=== PATIENT | male | born 1975 | race American Indian/Alaskan Native ===

== ENCOUNTER 2017-08-10 14:04 | Emergency (ER) | payer SELFPAY ==
[2017-08-10 14:42] VITALS: BP 124/75
--- NOTE | 2017-08-10 15:58 | XRay Report ---
FINAL REPORT EXAM: XR FINGER(S) 2+V LT HISTORY: swelling s/p injury lt middle finger TECHNIQUE: AP, lateral, and oblique views of the left 3rd finger PRIORS: None. FINDINGS: There is no evidence for acute fracture or dislocation. Significant soft tissue swelling is seen along the dorsal aspect is of the 3rd proximal interphalangeal joint. There is an air bubble within the soft tissues which can be due to laceration or infection. No radiopaque foreign bodies are seen. Bony mineralization is normal and joint spaces are maintained. IMPRESSION: No acute bony abnormality noted. Significant soft tissue swelling is seen along the dorsal aspect of the 3rd proximal phalanx. There is air within the swelling consistent with either laceration or infection.
[2017-08-10] MEDS ORDERED: BOOSTRIX IM ONE (19:10)
[2017-08-10] MEDS ORDERED: MOTRIN PO ONE (19:10)
--- NOTE | 2017-08-10 19:40 | Emergency Department Report ---
ED Laceration HPI - HPI Chief Complaint: Extremity Injury, Upper Stated Complaint: LACERATION LEFT MIDDLE FINGER Time Seen by Provider: 08/10/17 19:13 Location: Upper Extremity (left 3rd digit) Severity: moderate Tetanus Status: Not up to Date Laceration Symptoms: No Foreign Body Sensation, No Numbness, No Weakness, No Pain Other History: This is a 41 y.o. A.A. male, presents with laceration to left 3rd digit. Patient reports finger got caught in a door at his friend house Friday morning around 0500. His friend girlfriend wrapped the finger with gauze and he thought it would close on its own. He was not having pain and didn' t think he need to come to the hospital. States yesterday it began to swell and mild bloddy discharge. He felt like something wasn't right. Denies pain, numbness/tingling, and odor. ED Review of Systems ROS: Stated complaint: LACERATION LEFT MIDDLE FINGER Other details as noted in HPI Constitutional: denies: chills, fever Respiratory: denies: cough, shortness of breath, wheezing Cardiovascular: denies: chest pain, palpitations Gastrointestinal: denies: abdominal pain, nausea, diarrhea Skin: other (laceration to left 3rd finger for 48 hours). denies: rash, lesions ED Past Medical Hx - Past Medical History Previous Medical History?: No - Surgical History Additional Surgical History: hernia surgery-unknown year - Social History Smoking Status: Current Every Day Smoker Substance Use Type: Alcohol - Medications Home Medications: Home Medications Medication Instructions Recorded Confirmed Last Taken Type Ibuprofen [Motrin] 800 mg PO Q8HR PRN #60 tablet 04/06/15 Unknown Rx methOCARBAMOL [Robaxin TAB] 500 mg PO BID #10 tab 04/06/15 Unknown Rx traMADol [Ultram] 50 mg PO Q6HR PRN #14 tablet 04/06/15 Unknown Rx Cephalexin [Keflex] 500 mg PO BID 7 Days #14 capsule 08/10/17 Unknown Rx Laceration Physical Exam - Exam General: Vital signs noted. No distress. Alert and acting appropriately. Wound Length (cm): 5 Laceration Location: Upper Extremity (left 3rd proximal phalanx, swelling, erythema, intact tendon) Laceration Exam: Yes Exposed Tendon, Vessel, or Nerve, Yes Normal Distal CMS, No Foreign Body, No Tendon Injury ED Course Vital Signs 08/10/17 14:37 Temperature 98 F Pulse Rate 82 Respiratory 18 Rate Blood Pressure 124/75 O2 Sat by Pulse 98 Oximetry - Laceration /Wound Repair Left Proximal Finger Wound Location: upper extremity (3rd proximal phalanx) Wound Length (cm): 5 Wound's Depth, Shape: into muscle, linear, flap Wound Explored: contaminated Irrigated w/ Saline (ccs): 20 Betadine Prep?: Yes Anesthesia: 1% Lidocaine Volume Anesthetic (ccs): 2 Wound Repaired With: sutures Suture Size/Type: 4:0, proline Number of Sutures: 6 (loose, continous) Layer Closure?: No Sterile Dressing Applied?: Yes ED Medical Decision Making - Radiology Data Radiology results: report reviewed, image reviewed Finger Xray IMPRESSION: No acute bony abnormality noted. Significant soft tissue swelling is seen along the dorsal aspect of the 3rd proximal phalanx. There is air within the swelling consistent with either laceration or infection. - Medical Decision Making This is a 41 y.o. male presents with left 3rd digit laceration x 2 days. Patient examined by me. X-ray of left hand obtained. No acute bony abnormality noted. Significant soft tissue swelling is seen along the dorsal aspect of the 3rd proximal phalanx. There is air within the swelling consistent with either laceration or infection. Patient is non-toxic appearing and stable. Physical examination is susceptible of cellulites. Consulted with Dr. Read. Advised to loosely suture, tetanus, and start antibiotic. Obtained culture, awaiting results. Given tetanus 0.5 mL IM, motrin 600 mg po once, and keflex 500 mg po once in Er. Placed 6 loose sutures, refer to suture note. Discharged home for outpatient treatment with keflex. Discussed ER care plan with patient. Patient agreed with plan. F/U with Dr. Duarte or [facility]. Suture removal in 7 days. Patient informed of risk of losing finger or function if he doesn't follow up with Ortho. Critical care attestation.: If time is entered above; I have spent that time in minutes in the direct care of this critically ill patient, excluding procedure time. ED Disposition Clinical Impression: Cellulitis of finger of left hand Laceration of finger Qualifiers: Encounter type: initial encounter Finger: middle finger Damage to nail status: without damage Foreign body presence: without foreign body Laterality: left Qualified Code(s): S61.213A - Laceration without foreign body of left middle finger without damage to nail, initial encounter Disposition: DC-01 TO HOME OR SELFCARE Is pt being admited?: No Does the pt Need Aspirin: No Condition: Stable Instructions: Suture Care (ED), Finger Laceration (ED) Additional Instructions: Return to ER or primary care provider for suture removal in 7 days. Take antibiotics as prescribed for the full course. Avoid over use of left hand and prop arm up on pillows to decrease swelling. Follow up with Orthopedic Dr. Duarte or [facility]. Return to ER if red, swollen, foul discharge, or fever. Prescriptions: Cephalexin [Keflex] 500 mg PO BID 7 Days #14 capsule Referrals: PAU DUARTE MD [Staff Physician] - 3-5 Days [facility] [Outside] - 3-5 Days [facility] [Outside] - 3-5 Days Time of Disposition: 20:46 Print Language: PANAMANIAN
[2017-08-10] MEDS ORDERED: KEFLEX ONE (20:29)
[2017-08-10] MEDS: KEFLEX PO ONE ×2 (20:30→20:49)
[2017-08-10] MEDS ORDERED: KEFLEX PO ONE (20:40)
== END 2017-08-10 21:00 | disposition home or self-care (01) ==
LOC: ED 14:04
DX: S61.213A Laceration without foreign body of left middle finger without damage to nail, initial encounter (principal); L03.012 Cellulitis of left finger; F17.200 Nicotine dependence, unspecified, uncomplicated; W23.0XXA Caught, crushed, jammed, or pinched between moving objects, initial encounter; Y93.89 Activity, other specified; Y99.8 Other external cause status; Y92.009 Unspecified place in unspecified non-institutional (private) residence as the place of occurrence of the external cause
CPT/HCPCS: 87075; 87116; 90471; 90715

== ENCOUNTER 2017-08-19 04:35 | Emergency (ER) | payer SELFPAY ==
[2017-08-19 07:39] VITALS: BP 129/93
--- NOTE | 2017-08-19 10:14 | Emergency Department Report ---
Suture/Staple Removal - [facility] Chief Complaint: Laceration/Recheck/Suture Time Seen by Provider: 08/19/17 10:10 When Sutures or [place] Placed: 5-7 Days Ago (patient appears to have a very large laceration that was repaired a week ago. It appears that the laceration had loose stitches since the tissue was somewhat destroyed. Patient denies any purulent discharge denies any swelling denies any redness.) Wound Location: right hand middle finger ED Review of Systems ROS: Stated complaint: Other details as noted in HPI Constitutional: denies: chills, fever Eyes: denies: eye pain, eye discharge, vision change ENT: denies: ear pain, throat pain Respiratory: denies: cough, shortness of breath, wheezing Cardiovascular: denies: chest pain, palpitations Endocrine: no symptoms reported Gastrointestinal: denies: abdominal pain, nausea, diarrhea Genitourinary: denies: urgency, dysuria Musculoskeletal: denies: back pain, joint swelling, arthralgia Skin: denies: rash, lesions Neurological: denies: headache, weakness, paresthesias Psychiatric: denies: anxiety, depression Hematological/Lymphatic: denies: easy bleeding, easy bruising ED Past Medical Hx - Surgical History Additional Surgical History: hernia surgery-unknown year - Social History Smoking Status: Current Every Day Smoker Substance Use Type: Alcohol - Medications Home Medications: Home Medications Medication Instructions Recorded Confirmed Last Taken Type Ibuprofen [Motrin] 800 mg PO Q8HR PRN #60 tablet 04/06/15 Unknown Rx methOCARBAMOL [Robaxin TAB] 500 mg PO BID #10 tab 04/06/15 Unknown Rx traMADol [Ultram] 50 mg PO Q6HR PRN #14 tablet 04/06/15 Unknown Rx Cephalexin [Keflex] 500 mg PO BID 7 Days #14 capsule 08/10/17 Unknown Rx Suture Removal Exam - Exam General: Vital signs noted. No distress. Alert and acting appropriately. Wound: No Pathologic Erythema, No Tenderness, No Drainage, No Pus, No Wound Dehiscence Other Systems: All other systems reviewed and are unremarkable. ED Course Vital Signs 08/19/17 07:35 Temperature 98.1 F Pulse Rate 73 Respiratory 18 Rate Blood Pressure 129/93 O2 Sat by Pulse 98 Oximetry ED Recheck MDM - Core Measures Measure Exclusions: not indicated - Differential Diagnosis Wound Recheck, Suture/Staple Removal - Medical Decision Making Sutures removed. Discussed the patient to keep the area clean and dry. Also discussed the patient that the wound was quite large and a lot of the skin was destroyed. That there may be some changes in his skin color. Discussed the patient that he may have a nice scar there. Patient is able to bend his finger with no problems or pain. Critical care attestation.: If time is entered above; I have spent that time in minutes in the direct care of this critically ill patient, excluding procedure time. ED Disposition Clinical Impression: Visit for suture removal Disposition: DC-01 TO HOME OR SELFCARE Is pt being admited?: No Does the pt Need Aspirin: No Condition: Stable Instructions: Suture Removal (ED) Additional Instructions: Please keep the ear clean and dry. He can apply Neosporin/triple antibiotic daily to the wound. Return to the emergency room the wound opens up starts to have any purulent discharge pain redness swelling. Referrals: PRIMARY CARE, [Primary Care Provider] - 3-5 Days Forms: Work/School Release Form(ED)
== END 2017-08-19 10:23 | disposition home or self-care (01) ==
LOC: ED 04:35
DX: S61.212D Laceration without foreign body of right middle finger without damage to nail, subsequent encounter (principal); W26.8XXD Contact with other sharp object(s), not elsewhere classified, subsequent encounter; F17.200 Nicotine dependence, unspecified, uncomplicated
CPT/HCPCS: 99282

== ENCOUNTER 2017-09-05 04:41 | Emergency (ER) | payer SELFPAY ==
[2017-09-05 06:33] VITALS: BP 114/75
--- NOTE | 2017-09-05 10:27 | Emergency Department Report ---
Abscess Boil HPI - HPI Chief Complaint: Skin/Abscess/Foreign Body Stated Complaint: LT KNEE PAIN Time Seen by Provider: 09/05/17 08:58 Duration: 3 Days Location: Lower Extremity (left inner knee, lateral) History: Yes Pain (left inner knee), Yes Purulent Drainage (from spider bite), Yes Insect Bite, No Fever, No Numbness, No Foreign Body, No Previous History HPI: Patient reported that he was bitten by a spider 3 days ago and he has a boil to his left inner knee. He said he uses finger to drain the area. He says there is a lot of reddish drainage coming from the site. Reports pain 6 out of 10 worse with movement. Tetanus vaccine is up-to-date less than 5 years. Denies any fever or chills. Pain is worse with movement better with rest. No [id number] medication taken. Patient said he was trying to squeeze the pus out and he has dry dressing to area. Similar abscess in the past Home Medications: Previous Rx's Medication Instructions Recorded Last Taken Type methOCARBAMOL [Robaxin TAB] 500 mg PO BID #10 tab 04/06/15 Unknown Rx traMADol [Ultram] 50 mg PO Q6HR PRN #14 tablet 04/06/15 Unknown Rx Cephalexin [Keflex] 500 mg PO BID 7 Days #14 capsule 08/10/17 Unknown Rx Ibuprofen [Motrin 800 MG tab] 800 mg PO Q8HR PRN #15 tablet 09/05/17 Unknown Rx Sulfamethoxazole/Trimethoprim 1 each PO BID 10 Days #20 tablet 09/05/17 Unknown Rx [Bactrim DS TAB] Allergies/Adverse Reactions: Allergies Allergy/AdvReac Type Severity Reaction Status Date / Time No Known Allergies Allergy Verified 04/05/15 20:33 ED Review of Systems ROS: Stated complaint: LT KNEE PAIN Other details as noted in HPI Comment: All other systems reviewed and negative Constitutional: no symptoms reported Respiratory: no symptoms reported Cardiovascular: denies: chest pain, palpitations, dyspnea on exertion, edema, syncope, paroxysmal nocturnal dyspnea Gastrointestinal: denies: nausea, vomiting, diarrhea, constipation Genitourinary: denies: dysuria, hematuria Musculoskeletal: denies: back pain, arthralgia, myalgia Skin: other (boil to the left knee) Neurological: denies: headache ED Past Medical Hx - Past Medical History Previous Medical History?: No Hx Hypertension: Yes Additional medical history: Abscess - Surgical History Past Surgical History?: Yes Additional Surgical History: hernia surgery-unknown year - Family History Family history: no significant - Social History Smoking Status: Current Every Day Smoker Substance Use Type: Cocaine, Marijuana - Medications Home Medications: Home Medications Medication Instructions Recorded Confirmed Last Taken Type methOCARBAMOL [Robaxin TAB] 500 mg PO BID #10 tab 04/06/15 Unknown Rx traMADol [Ultram] 50 mg PO Q6HR PRN #14 tablet 04/06/15 Unknown Rx Cephalexin [Keflex] 500 mg PO BID 7 Days #14 capsule 08/10/17 Unknown Rx Ibuprofen [Motrin 800 MG tab] 800 mg PO Q8HR PRN #15 tablet 09/05/17 Unknown Rx Sulfamethoxazole/Trimethoprim 1 each PO BID 10 Days #20 tablet 09/05/17 Unknown Rx [Bactrim DS TAB] ED Abscess Boil Physical Exam - Exam General: Vital signs noted. No distress. Alert and acting appropriately. This is a 41-year-old male well-nourished well-developed in no acute distress and nontoxic in appearance Front/Back of Body, Lg (Color): 1 - 2 x 2 centimeter erythematous area with small opening in the center. Minimal induration. Express a large amount of pus from area. Packing placed and sterile clean dry dressing placed inside. Size: 2 cm Exam: Yes Tenderness (left inner lateral knee), Yes Fluctuance (would open in the Center. Purulent drainage. Still minimal induration), Yes Surrounding Cellulites/Erythema (2 x 2 centimeter of cellulitis and erythema), Yes Normal Neurologic Exam (alert and oriented 3, speech is clear and fluent. Normal reflexes.), Yes Normal Circulation (extremities with good color, sensation temperature and movement. +2 pulses to extremities), No Lymphangitis, No Crepitation, No Heart Murmur Exam: Lungs:Clear to Auscultate bilaterally, no rhonchi wheezes or rales. CV: S1, S2. Regular rate and rhythm. No murmur. Mouth: Oral airways patent, uvula is midline. Mucous membrane is moist. I & D Note - I & D Note I & D Note: Incision and drainage procedure. Abscess already draining. Area cleansed with iodine followed by saline. Large amount of pus expressed from site. Sterile iodoform gauze used to pack the abscess. Sterile dry dressing placed inside. Tetanus vaccine is up-to-date per patient ED Course Vital Signs 09/05/17 06:31 Temperature 98.7 F Pulse Rate 94 H Respiratory 17 Rate Blood Pressure 114/75 - Reevaluation(s) Reevaluation #1: 09/05/17 10:37 See procedure note for wound care. Patient given Bactrim DS 1 by mouth and [place] 5/325 2 tablets. Emergency room Critical care attestation.: If time is entered above; I have spent that time in minutes in the direct care of this critically ill patient, excluding procedure time. ED Medical Decision Making - Medical Decision Making ED course: Pt with 2 x 2 area of cellulitic area with small opening in the center that is draining a large amount of pus. See procedure note for details on procedure. Patient given [place] 5/325 mg 2 tablets in the emergency room for pain and Bactrim DS one by mouth. He was told to return in 4 days after antibiotic for packing removal and he voiced understanding and discharged home in stable condition with prescription for Motrin and Bactrim DS. ED Disposition Clinical Impression: Simple abscess, Left lateral knee pain Insect bite Qualifiers: Encounter type: initial encounter Qualified Code(s): W57.XXXA - Bitten or stung by nonvenomous insect and other nonvenomous arthropods, initial encounter Disposition: TO HOME OR SELFCARE Is pt being admited?: No Does the pt Need Aspirin: No Condition: Stable Instructions: Arthralgia (ED), Abscess (ED) Additional Instructions: Please return in 4 days to have packing removed. You were started on a first dose of Bactrim so please continue as ordered. Take motrin for pain and this will help. Please keep affected area clean and dry Apply warm compresses the site 3-4 times a day. Prescriptions: Ibuprofen [Motrin 800 MG tab] 800 mg PO Q8HR PRN #15 tablet PRN Reason: Pain Sulfamethoxazole/Trimethoprim [Bactrim DS TAB] 1 each PO BID 10 Days #20 tablet Referrals: [facility] [Outside] - 2-3 Days return to, emergency room [Other] - 3-5 Days (For packing removal in 4 days) Forms: Work/School Release Form(ED)
[2017-09-05] MEDS ORDERED: BACTRIM DS PO ONE (10:28)
[2017-09-05] MEDS ORDERED: NORCO 5/325 PO ONE (10:28)
== END 2017-09-05 10:52 | disposition home or self-care (01) ==
LOC: ED 04:41
DX: M25.562 Pain in left knee (principal); L02.91 Cutaneous abscess, unspecified; F12.10 Cannabis abuse, uncomplicated; F17.200 Nicotine dependence, unspecified, uncomplicated; I10 Essential (primary) hypertension; W57.XXXA Bitten or stung by nonvenomous insect and other nonvenomous arthropods, initial encounter; Y93.89 Activity, other specified; Y92.89 Other specified places as the place of occurrence of the external cause; Y99.8 Other external cause status
CPT/HCPCS: 99282

== ENCOUNTER 2017-09-23 21:44 | Emergency (ER) | payer OTHER ==
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
[2017-09-24] MEDS ORDERED: TORADOL IM ONE (06:09)
[2017-09-24] MEDS ORDERED: FLEXERIL PO ONE (06:09)
[2017-09-24 07:21] VITALS: BP 129/75
== END 2017-09-24 07:18 | disposition home or self-care (01) ==
LOC: ED 21:44
DX: S39.012A Strain of muscle, fascia and tendon of lower back, initial encounter (principal); M54.2 Cervicalgia; I10 Essential (primary) hypertension; V49.9XXA Car occupant (driver) (passenger) injured in unspecified traffic accident, initial encounter; Y93.89 Activity, other specified; Y99.8 Other external cause status; Y92.410 Unspecified street and highway as the place of occurrence of the external cause
CPT/HCPCS: 96372; 99282; J1885